=== PATIENT | male | born 1940 ===

== ENCOUNTER 2024-11-08 11:45 | Inpatient (IN) | payer OTHER ==
[~2024-11-08] VITALS: Ht 172.7 cm; Wt 65.8 kg
[2024-11-10 09:45] LABS: INR 1.19; PARTIAL THROMBOPLASTIN TIME 28.9 SECONDS (22.0-34.0); PROTHROMBIN TIME 12.8 SECONDS (9.0-11.5)
[2024-11-10] MEDS ORDERED: CEFTRIAXONE SODIUM 2,000 MG VIAL ONE (11:56)
[2024-11-10] MEDS ORDERED: METRONIDAZOLE/SODIUM CHLORIDE 500 MG/100 ML PIGGYBACK IV ONE ×2 (11:56→17:49)
[2024-11-10] MEDS ORDERED: LIDOCAINE HCL 1% 10ML VIAL ONE (13:13)
[2024-11-10] MEDS ORDERED: BUPIVACAINE HCL/MPF 0.5% 30ML VIAL ONE (13:13)
[2024-11-10] MEDS ORDERED: SUGAMMADEX SODIUM 200 MG/2 ML VIAL IV ONE (15:36)
[2024-11-10] MEDS ORDERED: OxyCODONE HCL 5 MG TABLET (ROXICODONE) PO PRN (16:15)
[2024-11-10] MEDS ORDERED: 0.9 % SODIUM CHLORIDE 1,000 ML IV SCH (16:15)
[2024-11-10] MEDS ORDERED: MORPHINE SULFATE 4 MG/ML CARTRIDGE IV PRN (16:15)
[2024-11-10] MEDS ORDERED: ONDANSETRON HCL 2 MG/ML VIAL IV PRN (16:15)
[2024-11-10] MEDS ORDERED: DEXTROSE 50 % IN WATER 0.5 G/ML DISP.SYRIN IV PRN (16:15)
[2024-11-10] MEDS ORDERED: METRONIDAZOLE/SODIUM CHLORIDE 500 MG/100 ML PIGGYBACK IV SCH (17:00)
[2024-11-10] MEDS ORDERED: HYOSCYAMINE SULFATE 0.125 MG TAB.SUBL SL SCH (17:00)
[2024-11-10] MEDS ORDERED: MORPHINE SULFATE 4 MG/ML VIAL IV ONE (17:30)
[2024-11-10 18:12] LABS: HEMATOCRIT 31.7 % (39.0-48.0); HEMOGLOBIN 10.2 g/dL (13-16.00); MEAN CELL VOLUME 84.4 fL (80.0-100.00); MEAN CORPUSCULAR HEMOGLOBIN 27.1 pg (27.00-32.0); MEAN CORPUSCULAR HGB CONC 32.1 g/dl (32.0-36.0); PLATELET COUNT 262 K/uL (150-450); RED BLOOD COUNT 3.75 M/uL (4.00-6.00); RED CELL DISTRIBUTION WIDTH 14.7 % (11.5-14.5)
[2024-11-10 18:18] VITALS: BP 153/81; O2SAT 95
[2024-11-10 18:36] LABS: ALBUMIN 3.5 gm/dL (3.4-5.0); CALCIUM 8.7 mg/dL (8.5-10.1); CREATININE SERUM 1.19 mg/dL (0.70-1.30); GFR 58.24; MAGNESIUM 1.9 mg/dL (1.8-2.4); PHOSPHOROUS 2.9 mg/dL (2.5-4.9); POTASSIUM 4.17 mEq/L (3.5-5.1)
[2024-11-10] MEDS ORDERED: ACETAMINOPHEN 500 MG GEL..CAP PO SCH (20:00)
[2024-11-10] MEDS ORDERED: FAMOTIDINE/PF 20 MG/2 ML VIAL IV PUSH SCH (21:00)
[2024-11-11] VITALS: BP 154/74; O2SAT 97
[2024-11-11 07:03] LABS: HEMATOCRIT 32.2 % (39.0-48.0); HEMOGLOBIN 10.5 g/dL (13-16.00); MEAN CELL VOLUME 83.9 fL (80.0-100.00); MEAN CORPUSCULAR HEMOGLOBIN 27.4 pg (27.00-32.0); MEAN CORPUSCULAR HGB CONC 32.7 g/dl (32.0-36.0); PLATELET COUNT 280 K/uL (150-450); RED BLOOD COUNT 3.84 M/uL (4.00-6.00); RED CELL DISTRIBUTION WIDTH 14.8 % (11.5-14.5)
[2024-11-11 07:39] LABS: ALBUMIN 3.1 gm/dL (3.4-5.0); CALCIUM 8.2 mg/dL (8.5-10.1); CREATININE SERUM 1.17 mg/dL (0.70-1.30); GFR 59.39; MAGNESIUM 1.8 mg/dL (1.8-2.4); PHOSPHOROUS 3.7 mg/dL (2.5-4.9); POTASSIUM 4.1 mEq/L (3.5-5.1)
[2024-11-11 08:00] VITALS: BP 135/63; O2SAT 97
[2024-11-11] MEDS ORDERED: ENOXAPARIN SODIUM 40 MG/0.4 ML SYRINGE SUBCUTANEO SCH (17:00)
[2024-11-11 17:09] VITALS: BP 131/66; O2SAT 98
[2024-11-12 00:50] VITALS: BP 138/75; O2SAT 96
[2024-11-12 08:00] VITALS: BP 148/71; O2SAT 96
[2024-11-12] MEDS ORDERED: ENOXAPARIN SODIUM 40 MG/0.4 ML SYRINGE SUBCUTANEO SCH (09:00)
[2024-11-12 16:30] VITALS: BP 159/76; O2SAT 96
[2024-11-13 00:35] VITALS: BP 131/68; O2SAT 97
[2024-11-13 08:00] VITALS: BP 160/76; O2SAT 95
[2024-11-13 15:54] VITALS: BP 157/65; O2SAT 97
[2024-11-13 16:47] VITALS: BP 157/65; O2SAT 97
[2024-11-14 00:39] VITALS: BP 156/76; O2SAT 94
[2024-11-14 08:19] VITALS: BP 158/70; O2SAT 97
[2024-11-14] MEDS ORDERED: TRAM1TAB98 PO (13:14)
== END 2024-11-14 15:17 | disposition home or self-care (01) | DRG 330 ==
LOC: EDUNIT# 11:45 → O/R 11-10 07:13 → SURH 11-10 07:13
PROVIDERS: ADMIT Surgery; ATTEND Surgery
PROC: 0FB04ZX Excision of Liver, Percutaneous Endoscopic Approach, Diagnostic (ICD-10-PCS; 2024-11-10)
PROC: 0DBW4ZX Excision of Peritoneum, Percutaneous Endoscopic Approach, Diagnostic (ICD-10-PCS; 2024-11-10)
PROC: 0D1L4Z4 Bypass Transverse Colon to Cutaneous, Percutaneous Endoscopic Approach (ICD-10-PCS; principal; 2024-11-10 17:45)
DX: C18.7 Malignant neoplasm of sigmoid colon (principal); C78.6 Secondary malignant neoplasm of retroperitoneum and peritoneum; K56.600 Partial intestinal obstruction, unspecified as to cause; R59.0 Localized enlarged lymph nodes; I10 Essential (primary) hypertension

== ENCOUNTER 2024-11-09 08:14 | Outpatient (CLI) | payer OTHER | END 2024-11-09 08:15 | disposition home or self-care (01) | LOC: NUCLEAR 08:14 | PROVIDERS: ATTEND Surgery | DX: C18.7 Malignant neoplasm of sigmoid colon (principal) | CPT/HCPCS: 78816; A9552 ==

== ENCOUNTER 2024-11-28 05:22 | Day surgery (SDC) | payer OTHER ==
[~2024-11-28 05:22] MED LIST: TRAM1TAB98 PO
[2024-11-28] MEDS ORDERED: CEFAZOLIN SODIUM 1,000 MG VIAL ONE (07:45)
[2024-11-28] MEDS ORDERED: HEPARIN SODIUM,PORCINE/PF 100 UNIT/ML SYRINGE IV ONE (08:38)
[2024-11-28] MEDS ORDERED: TRAM1TAB98 PO (09:51)
== END 2024-11-28 13:55 | disposition home or self-care (01) ==
LOC: CIR.AMB 05:22
PROVIDERS: ATTEND Surgery
DX: C18.7 Malignant neoplasm of sigmoid colon (principal)
CPT/HCPCS: 36561; C1751

== ENCOUNTER 2025-06-14 21:02 | Inpatient (IN) | payer OTHER ==
[~2025-06-14] VITALS: Ht 172.7 cm; Wt 63.5 kg
[2025-06-14] MEDS ORDERED: 0.9 % SODIUM CHLORIDE 1,000 ML IV STA (21:26)
[2025-06-14] MEDS ORDERED: FAMOTIDINE/PF 20 MG/2 ML VIAL IV STA (21:27)
[2025-06-14] MEDS ORDERED: ONDANSETRON HCL 2 MG/ML VIAL IV STA (21:27)
[2025-06-14] MEDS ORDERED: MORPHINE SULFATE 4 MG/ML CARTRIDGE IV PRN (21:30)
[2025-06-14 21:55] LABS: BASO % 0.1 % (0.1-1.2); EOS # 0.00 (0.04-0.54); EOS % 0.0 % (0.7-7.0); LYMPH # 0.97 (1.18-3.74); LYMPH % 6.4 % (19.3-53.1); MEAN PLATELET VOLUME 10.50 fl (9.4-12.4); MONO # 0.28 (0.24-0.82); MONO % 1.8 % (4.7-12.5); NEUT # 13.73 (1.56-6.13); NEUT % 90.4 % (34.0-71.1); RED CELL DISTRIBUTION WIDTH 19.7 % (11.6-14.4)
[2025-06-14 21:59] LABS: ERYTHROCYTE SEDIMENTATION RATE 14 mm/hr (0-20)
[2025-06-14 22:13] LABS: INR 1.32
[2025-06-14 22:22] LABS: ALT/SGPT 11.0 U/L (12-78); AST/SGOT 10.0 U/L (15-37); BILIRUBIN TOTAL 1.2 mg/dL (0.3-1.2); BUN CREA RATIO 34.0 (7.0-25.0); CREATININE SERUM 1.01 mg/dL (0.70-1.30); GFR 70.21; GLOBULINA 3.5 G/DL (2.4-3.5); GLUCOSE FASTING 102.0 mg/dL (65-100); OSMOLALITY SERUM 282.0 MOSM/KG (275-295)
[2025-06-15 00:53] LABS: URINE APPEARANCE Clear; URINE BILIRRUBIN Negative (NEGATIVE); URINE BLOOD Negative; URINE COLOR Yellow; URINE GLUCOSE Negative (NEGATIVE); URINE KETONE Negative (NEGATIVE); URINE LEUKOCYTE Negative; URINE NITRATE Negative; URINE PROTEIN Negative (NEGATIVE); URINE UROBILINOGEN 0.2 E.U./dl
[2025-06-15 00:56] LABS: URINE BACTERIA 7.1 uL (0.0-1933)
[2025-06-15 01:24] LABS: URINE CAST 0.43 uL (0.0-1.40); URINE EPITHELIAL CELLS 1.3 uL (0.0-38.8); URINE RBC 0.5 uL (0.0-20.8); URINE WBC 0.9 uL (0.0-23.2)
[2025-06-15] MEDS ORDERED: CIPROFLOXACIN IN 5 % DEXTROSE 200 ML IV SCH ×2 (03:22→14:21)
[2025-06-15] MEDS ORDERED: 0.9 % SODIUM CHLORIDE 1,000 ML IV SCH (14:15)
[2025-06-15] MEDS ORDERED: FAMOTIDINE/PF 20 MG/2 ML VIAL IV SCH (14:21)
[2025-06-15] MEDS ORDERED: MULTIVIT INFUSN,ADULT 4,VIT K 10 ML VIAL IV SCH (14:23)
[2025-06-15] MEDS ORDERED: MORPHINE SULFATE 2 MG/ML SYRINGE IV PRN (14:30)
[2025-06-15] MEDS ORDERED: ACETAMINOPHEN 500 MG GEL..CAP PO PRN (14:30)
[2025-06-15 16:24] VITALS: BP 163/92
[2025-06-15] MEDS ORDERED: AMLODIPINE BESYLATE 5 MG TABLET PO SCH (17:00)
[2025-06-15 17:49] VITALS: BP 164/94; O2SAT 100
[2025-06-15] MEDS ORDERED: METOPROLOL SUCCINATE 25 MG TAB.SR.24H PO SCH (21:00)
[2025-06-15] MEDS ORDERED: TAMSULOSIN HCL 0.4 MG CAP PO SCH (21:00)
[2025-06-16] VITALS: BP 124/65; O2SAT 97
[2025-06-16 06:52] LABS: BASO % 0.1 % (0.1-1.2); EOS # 0.01 (0.04-0.54); EOS % 0.1 % (0.7-7.0); LYMPH # 0.90 (1.18-3.74); LYMPH % 8.4 % (19.3-53.1); MEAN PLATELET VOLUME 11.10 fl (9.4-12.4); MONO # 0.60 (0.24-0.82); MONO % 5.6 % (4.7-12.5); NEUT # 9.08 (1.56-6.13); NEUT % 85.1 % (34.0-71.1); RED CELL DISTRIBUTION WIDTH 20.1 % (11.6-14.4)
[2025-06-16 07:06] LABS: ERYTHROCYTE SEDIMENTATION RATE 12 mm/hr (0-20)
[2025-06-16 07:57] LABS: ALT/SGPT 12.0 U/L (12-78); AST/SGOT 15.0 U/L (15-37); BILIRUBIN TOTAL 1.7 mg/dL (0.3-1.2); BUN CREA RATIO 24.0 (7.0-25.0); CHOL HDL RATIO 2.1 (0-5.0); CREATININE SERUM 1.27 mg/dL (0.70-1.30); GFR 53.9; GLOBULINA 3.2 G/DL (2.4-3.5); GLUCOSE FASTING 100.0 mg/dL (65-100); HDL 64.0 mg/dl (40-60); LDL 46.0 mg/dl (0-130); OSMOLALITY SERUM 288.0 MOSM/KG (275-295); PROSTATIC SPECIFIC ANTIGEN 3.66 NG/ML (0.010-4.00); TSH 2.2 uIU/mL (0.358-3.74); VLDL 23.0 (0-39)
[2025-06-16 08:00] VITALS: BP 137/75; O2SAT 99
[2025-06-16 08:14] LABS: T4 FREE 1.49 NG/ML (0.76-1.46)
[2025-06-16] MEDS ORDERED: LOSARTAN POTASSIUM 50 MG TABLET PO SCH (09:00)
[2025-06-16] MEDS ORDERED: FLUCONAZOLE IN NACL,ISO-OSM 200 MG/100 ML PIGGYBAG IV STA (11:17)
[2025-06-16 16:30] VITALS: BP 137/57; O2SAT 99
[2025-06-17 00:44] VITALS: BP 124/65; O2SAT 98
[2025-06-17 08:00] VITALS: BP 126/69; O2SAT 99
[2025-06-17] MEDS ORDERED: FLUCONAZOLE IN NACL,ISO-OSM 200 MG/100 ML PIGGYBAG IV SCH (09:00)
[2025-06-17] MEDS ORDERED: SIMVASTATIN 20 MG TABLET PO SCH (09:00)
[2025-06-17 10:26] LABS: URINE APPEARANCE Clear; URINE BILIRRUBIN Negative (NEGATIVE); URINE BLOOD Negative; URINE COLOR Yellow; URINE GLUCOSE Negative (NEGATIVE); URINE KETONE Negative (NEGATIVE); URINE LEUKOCYTE Trace; URINE NITRATE Negative; URINE PROTEIN 30 (NEGATIVE); URINE UROBILINOGEN 0.2 E.U./dl
[2025-06-17 10:28] LABS: URINE BACTERIA 16.8 uL (0.0-1933); URINE EPITHELIAL CELLS 9.2 uL (0.0-38.8); URINE RBC 3.9 uL (0.0-20.8); URINE WBC 5.2 uL (0.0-23.2)
[2025-06-17 10:30] LABS: URINE CAST 0.29 uL (0.0-1.40)
[2025-06-17 16:49] VITALS: BP 147/75; O2SAT 97
[2025-06-18 01:13] VITALS: BP 148/82; O2SAT 98
[2025-06-18 08:00] VITALS: BP 144/74; O2SAT 100
[2025-06-18 08:27] LABS: ALT/SGPT 11.0 U/L (12-78); AST/SGOT 13.0 U/L (15-37); BILIRUBIN TOTAL 1.02 mg/dL (0.3-1.2); BUN CREA RATIO 21.0 (7.0-25.0); CREATININE SERUM 1.04 mg/dL (0.70-1.30); GFR 67.87; GLOBULINA 2.4 G/DL (2.4-3.5); GLUCOSE FASTING 97.0 mg/dL (65-100); OSMOLALITY SERUM 288.0 MOSM/KG (275-295)
[2025-06-18 16:44] VITALS: BP 128/73; O2SAT 98
[2025-06-18] MEDS ORDERED: METRONIDAZOLE500 MG PO (18:30)
[2025-06-18] MEDS ORDERED: CIPRO500 MG PO (18:30)
[2025-06-18] MEDS ORDERED: FLUCONAZOLE50 MG PO (18:30)
[2025-06-18] MEDS ORDERED: INTESTINEX680 M2 PO (18:30)
[2025-06-18] MEDS ORDERED: PEPCID AC20 MG PO (18:30)
== END 2025-06-18 22:15 | disposition home or self-care (01) | DRG 392 ==
LOC: ER 21:02 → SURH 06-15 14:50
PROVIDERS: Physician Assistant Medical; ADMIT Internal Medicine; ATTEND Internal Medicine
PROC: BW21YZZ Computerized Tomography (CT Scan) of Abdomen and Pelvis using Other Contrast (ICD-10-PCS; principal; 2025-06-14)
PROC: 8E0ZXY6 Isolation (ICD-10-PCS; 2025-06-15)
DX: K57.32 Diverticulitis of large intestine without perforation or abscess without bleeding (principal); D84.821 Immunodeficiency due to drugs; N17.9 Acute kidney failure, unspecified; C18.7 Malignant neoplasm of sigmoid colon; T45.1X5A Adverse effect of antineoplastic and immunosuppressive drugs, initial encounter; Y65.8 Other specified misadventures during surgical and medical care; Z79.899 Other long term (current) drug therapy; E86.0 Dehydration; R59.0 Localized enlarged lymph nodes; K21.9 Gastro-esophageal reflux disease without esophagitis; N40.0 Benign prostatic hyperplasia without lower urinary tract symptoms; E78.5 Hyperlipidemia, unspecified; I10 Essential (primary) hypertension